=== PATIENT | female | born 1970 | race Caucasian/White ===

== ENCOUNTER 2018-11-06 21:02 | Emergency (ER) | payer SELFPAY ==
[2018-11-06 22:29] VITALS: BP 144/86
[2018-11-06] MEDS ORDERED: TETRACAINE HCL 0.5% OPH SOLN 4 ML OS ONE (23:21)
[2018-11-06] MEDS ORDERED: KETOROLAC TROMETHAMINE 0.45% 4 DROP/0.4 ML DROPERETTE OS ONE (23:52)
[2018-11-06] MEDS ORDERED: BESIFLOXACIN HCL 0.6% OPH SUSP 5 ML BOTTLE OS ONE (23:53)
[2018-11-06] MEDS ORDERED: HYDROCODONE/ACETAMINOPHEN 5-325 MG (6 TAB/ER DISP) PO PRN (23:53)
--- NOTE | 2018-11-06 23:56 | ER Document Report ---
ED Eye Complaint - General Chief Complaint: Eye Pain Stated Complaint: LEFT EYE Time Seen by Provider: 11/06/18 23:11 Primary Care Provider: DARREN AGUILERA MD [ACTIVE STAFF] - 11/08/18 Notes: Patient is a 48-year-old female that comes to the emergency department for chief complaint of left eye discomfort that started today. She states that she is having some clear drainage, it feels like there is a foreign body stuck in her eye. She does wear contacts, she took them out this morning when she could not stand it anymore. She has glasses to wear alternatively. She denies visual loss, injury, or any other complaints. TRAVEL OUTSIDE OF THE [place] IN LAST 30 DAYS: No - Related Data Allergies/Adverse Reactions: No Known Allergies Allergy (Verified 01/07/15 03:47) Past Medical History - General Information source: Patient - Social History Smoking Status: Never Smoker Frequency of alcohol use: None Drug Abuse: None Lives with: Family Family History: Arthritis, CAD, CVA, Hyperlipidemia, Hypertension, Malignancy Patient has suicidal ideation: No Patient has homicidal ideation: No Neurological Medical History: Reports: Hx Migraine Renal/ Medical History: Denies: Hx Peritoneal Dialysis Musculoskeletal Medical History: Reports Hx Musculoskeletal Deformity, Reports Hx Musculoskeletal Trauma Traumatic Medical History: Reports: Hx Fractures - left tib fib hip Past Surgical History: Reports: Hx Section, Hx Cholecystectomy, Hx Orthopedic Surgery - left hip repair, ganglion cyst left wrist, Hx Tubal Ligation - Immunizations Immunizations up to date: Yes Hx Diphtheria, Pertussis, Tetanus Vaccination: Yes Review of Systems - Review of Systems Constitutional: No symptoms reported EENT: See HPI Cardiovascular: No symptoms reported Respiratory: No symptoms reported Gastrointestinal: No symptoms reported Genitourinary: No symptoms reported Female Genitourinary: No symptoms reported Musculoskeletal: No symptoms reported Skin: No symptoms reported Hematologic/Lymphatic: No symptoms reported Neurological/Psychological: No symptoms reported Physical Exam - Vital signs Vitals: Temp Pulse Resp BP Pulse Ox 98.1 F 93 16 144/86 H 99 11/06/18 22:28 11/06/18 22:28 11/06/18 22:28 11/06/18 22:28 11/06/18 22:28 - Notes Notes: GENERAL: Alert, interacts well. No acute distress. HEAD: Normocephalic, atraumatic. EYES: Pupils equal, round, and reactive to light. Extraocular movements intact. Left eye sclera injected. No discharge. No superficial foreign body, no fluorescein uptake, negative Jm sign. ENT: Oral mucosa moist, tongue midline. Oropharynx unremarkable. Airway patent. Nares patent, no nasal septal hematoma, TM's intact. NECK: Full range of motion. Supple. Trachea midline. LUNGS: Clear to auscultation bilaterally, no wheezes, rales, or rhonchi. No respiratory distress. HEART: Regular rate and rhythm. No murmur ABDOMEN: Soft, non-tender. Non-distended. Bowel sounds present in all 4 quadrants. GENITOURINARY: Deferred EXTREMITIES: Moves all 4 extremities spontaneously. No edema, normal radial and dorsalis pedis pulses bilaterally. No cyanosis. BACK: no cervical, thoracic, lumbar midline tenderness. No saddle anesthesia, normal distal neurovascular exam. NEUROLOGICAL: Alert and oriented x3. Normal speech. [cranial nerves II through XII grossly intact]. PSYCH: Normal affect, normal mood. SKIN: Warm, dry, normal turgor. No rashes or lesions noted. Course - Re-evaluation Re-evalutation: Patient has conjunctivitis, I do not see a foreign body, she does not have any visual changes or deficits, patient is a contact lens wearer but I did not clearly see a corneal ulcer. However because of the possibility of an underlying ulcer along with patient's presenting symptoms of foreign body sensation she will be started on Besivance for coverage, referred to ophthalmology for close follow-up. I discussed this with patient in detail. I discussed expectations, discussed return precautions. Patient states understanding and agreement with plan. - Vital Signs Vital signs: Temp Pulse Resp BP Pulse Ox 98.1 F 93 16 144/86 H 99 11/06/18 22:28 11/06/18 22:28 11/06/18 22:28 11/06/18 22:28 11/06/18 22:28 Discharge - Discharge Clinical Impression: Discomfort of left eye Condition: Stable Disposition: HOME, SELF-CARE Additional Instructions: Your evaluation shows conjunctivitis possibly iritis, however no ulcer is seen at this time. We are covering you with Besivance antibiotic drops, please take 1 drop 3 times a day for 7 days. Take the pills provided for pain at night only to sleep if needed (1-2 pills nightly). Take the Acular if needed for pain. Please follow-up with the school counsellor referral on Thursday, call for your follow-up appointment. Return if you worsen including loss of vision, swelling, discolored discharge, fever, or worsening symptoms. Prescriptions: Ketorolac Tromethamine [Acular] 5 ml OP ASDIR PRN #1 drops PRN Reason: Forms: Return to Work Referrals: DARREN AGUILERA MD [ACTIVE STAFF] - 11/08/18
[2018-11-07] MEDS ORDERED: BESIFLOXACIN HCL 0.6% OPH SUSP 5 ML BOTTLE ONE (00:10)
== END 2018-11-07 00:43 | disposition home or self-care (01) ==
LOC: ER 21:02
DX: H57.12 Ocular pain, left eye (principal); Z90.49 Acquired absence of other specified parts of digestive tract; Z98.51 Tubal ligation status
CPT/HCPCS: 99283; J3490